=== PATIENT | male | born 1960 | race Caucasian/White ===

== ENCOUNTER → 2021-01-17 | Day surgery (SDC) | payer OTHER ==
[~2021-01-17] MED LIST: AMOX TR-K CLV1 EAC4 PO; AZITHROMYCIN 2250 MG PO; CLARITIN10 MG PO; DICLOFENAC SODI75 MG PO; HCTZ25 MG PO; IBUPROFEN800 MG PO; LEVAQUIN750 MG PO; LEVOTHYROXINE50 MCG PO; LISINOPRIL 10MG10 MG PO; MEDROL 4MG DOSEP4 MG PO; MUCINEX 600MG600 MG PO; PHENERGAN25 M1 PO; PREDNISONE 20MG20 MG PO; PROAIR HFA8.5 GM INH; ROBITUSSIN W/COD5 ML PO; ROBITUSSIN W/CODEINE PO; THEOPHYLLINE400 MG PO; TRELEGY ELLIPT1 EACH INH; VIBRAMYCIN100 MG PO; VITAMIN D3100 MCG PO; XARELTO15 MG PO; XARELTO20 MG PO
[2021-01-17 09:23] LABS: ALBUMIN 3.6 g/dL (3.4-5.0); BILIRUBIN - TOTAL 0.8 mg/dL (0.2-1.0); CREATININE 0.88 mg/dL (0.67-1.17); GLOBULIN (CALCULATION) 3.5 g/dL; TOTAL PROTEIN 7.1 g/dL (6.4-8.2)
[2021-01-17 09:27] LABS: HCT 47.5 % (42.0-52.0); HGB 16.2 g/dl (13.2-18.0); MCH 29.2 pg (25.0-31.0); MCHC 34.1 g/dL (32.0-36.0); MCV 85.7 fL (78.0-100.0); MPV 10.5 fL (6.0-9.5); RBC 5.54 M/uL (4.70-6.00); RDW 13.3 % (11.5-14.0); WBC 6.1 K/uL (4.0-10.5)
== END | disposition home or self-care (01) ==
LOC: FAS 08:23
PROVIDERS: Surgery
DX: K58.9 Irritable bowel syndrome, unspecified (principal); K29.70 Gastritis, unspecified, without bleeding; K57.30 Diverticulosis of large intestine without perforation or abscess without bleeding; K21.9 Gastro-esophageal reflux disease without esophagitis; I10 Essential (primary) hypertension; M19.90 Unspecified osteoarthritis, unspecified site; D35.00 Benign neoplasm of unspecified adrenal gland; J44.9 Chronic obstructive pulmonary disease, unspecified; E78.5 Hyperlipidemia, unspecified; E03.9 Hypothyroidism, unspecified; G47.30 Sleep apnea, unspecified; Z79.899 Other long term (current) drug therapy; Z91.09 Other allergy status, other than to drugs and biological substances; Z90.49 Acquired absence of other specified parts of digestive tract; Z98.52 Vasectomy status; Z98.890 Other specified postprocedural states; Z87.891 Personal history of nicotine dependence; Z20.822 Contact with and (suspected) exposure to COVID-19; Z99.81 Dependence on supplemental oxygen
CPT/HCPCS: 36415; 80053; J1610; J2704; J7120; U0002

== ENCOUNTER 2021-01-25 12:37 | Emergency (ER) | payer OTHER ==
[~2021-01-25 12:37] MED LIST changes: -DICLOFENAC SODI75 MG PO
[2021-01-25] MEDS ORDERED: DICLOFENAC SODI75 MG PO (15:32)
== END 2021-01-25 15:45 | disposition home or self-care (01) ==
LOC: FER 12:37
DX: S29.011A Strain of muscle and tendon of front wall of thorax, initial encounter (principal); I10 Essential (primary) hypertension; J44.9 Chronic obstructive pulmonary disease, unspecified; Z87.19 Personal history of other diseases of the digestive system; Z87.891 Personal history of nicotine dependence; X50.9XXA Other and unspecified overexertion or strenuous movements or postures, initial encounter; Y92.009 Unspecified place in unspecified non-institutional (private) residence as the place of occurrence of the external cause
CPT/HCPCS: 71101